=== PATIENT | female | born 1995 ===

== ENCOUNTER 2022-01-28 10:30 | Day surgery (SDC) | payer OTHER ==
[~2022-01-28] VITALS: Ht 162.6 cm; Wt 48.3 kg
[2022-01-28] MEDS ORDERED: BENTYL 10MG10 MG/CAP PO (11:16)
[2022-01-28] MEDS ORDERED: LARISSIA-28 TA1 EACH PO (11:16)
[2022-01-28] MEDS ORDERED: ZOFRAN ODT4 MG PO (11:17)
[2022-01-28 12:35] VITALS: BP 119/80; PULSE 88; TEMP 98
--- NOTE | 2022-01-28 12:45 | NUR ---
PATIENT TO ROOM VIA CART. ASSIST X 1 TO GET INTO THE CHAIR. SHE REQUESTS A MUFFIN AND CRANBERRY JUICE. AT BEDSIDE. PATIENT DENIES ANY PAIN.
[2022-01-28 12:50] VITALS: BP 108/73; PULSE 84
--- NOTE | 2022-01-28 12:50 | NUR ---
PATIENT TOLERATED EATING AND DRINKING WELL. SHE IS WAITING FOR THE DOCTOR TO COME SPEAK WITH HER AND IS READY FOR D/C
[2022-01-28 13:05] VITALS: BP 136/92; PULSE 105
--- NOTE | 2022-01-28 13:05 | NUR ---
PATIENT READY FOR D/C, JUST WAITING FOR THE DOCTOR TO COME SPEAK TO HER.
[2022-01-28 13:20] VITALS: BP 120/72; PULSE 90
--- NOTE | 2022-01-28 13:20 | NUR ---
DOCTOR IN ROOM TO SPEAK WITH PATIENT. IV D/Cd AT 1:35.
[2022-01-28 15:23] VITALS: BP 127/79; PULSE 118; TEMP 97.6
== END 2022-01-28 13:42 | disposition home or self-care (01) ==
LOC: SDCO 10:30 → EDSEX 10:30 → SDCO 11:45
DX: K50.111 Crohn's disease of large intestine with rectal bleeding (principal); K50.00 Crohn's disease of small intestine without complications; K52.9 Noninfective gastroenteritis and colitis, unspecified; K63.1 Perforation of intestine (nontraumatic); R19.5 Other fecal abnormalities; Z79.899 Other long term (current) drug therapy
CPT/HCPCS: J2704; J7120